=== PATIENT | male | born 1990 | race Caucasian/White ===

== ENCOUNTER 2016-07-15 13:03 | Inpatient (IN) | payer BC ==
--- NOTE | ~2016-07-15 | HP ---
History And Physical [id number] [facility] [place]. [address] NAME: EDWIN HUGHES : 89 STATUS : ADM IN PAT#: [id number] AGE: 25 ADM/REG DATE : 07/15/16 MR#: [id number] REPORT SERV DATE: 07/15/16 DICTATED BY: DATE: REPORT STATUS : Draft TRANSCRIBED BY: MODL DATE: 07/15/16 DATE OF ADMISSION: 07/15/2016 CHIEF COMPLAINT: Constipation versus bowel obstruction, acute kidney injury, and hyperkalemia. PRIMARY ONCOLOGIST: Dr. Meet London of [facility]. POINT OF ENTRY: Direct admission from [facility] office. HISTORY OF PRESENTING ILLNESS: The patient's history was obtained through careful interview with the patient coupled with review of office note provided by [facility] dated 07/15/2016 in addition to review of [facility] records. The patient is a 25-year-old male with a history of metastatic rectal cancer. He was under the outpatient care of Dr. London at [facility]. The patient presented to [facility]'s office today for a followup visit. During this visit, the patient's abdomen was noted to be greatly distended, and the patient had no recollection of when his last productive stool was despite taking multiple medications daily to include MiraLAX, Senokot, and milk of magnesia. The patient also complained of increasingly worse back pain which has required more use of home pain medications. The patient also reported decreased intake and decreased urine output. Lab work obtained during this office visit reported creatinine to be elevated at 2.6 and potassium to be elevated at 5.7. The patient was referred to [facility] for direct admission for further evaluation and treatment of constipation versus bowel obstruction, acute kidney injury, and hyperkalemia. The patient reported that he has had significant decrease in his p.o. intake over the past week secondary to nausea with occasional vomiting. The patient reports a history of chronic constipation secondary to pain medication. The patient reports that his bowel habits have changed over the past several days and he is producing only small amounts of soft stool with no recollection of last date of productive bowel movement. The patient also complains of dizziness and lightheaded associated with quickly rising from sitting to standing or while showering that has worsened over the past several days. The patient also reports acute on chronic back/spine pain that he rates at an 8/10 on the pain scale. The patient reports his pain increases with movement. REVIEW OF SYSTEMS: CONSTITUTIONAL: Denies fever, sweats, or rigors. EYES: Denies any acute changes in vision. History And Physical [address] [place]. [address] NAME: EDWIN HUGHES : 90 STATUS : ADM IN PAT#: [id number] AGE: 25 ADM/REG DATE : 07/15/16 MR#: [id number] REPORT SERV DATE: 07/15/16 DICTATED BY: DATE: REPORT STATUS : Draft TRANSCRIBED BY: MODL DATE: 07/15/16 HEENT: Positive for migraine headache lasting for approximately 24 hours on Tuesday that has since resolved. CARDIOVASCULAR: Denies chest pain, palpitations, syncope, complains of occasional shortness of breath with exertion. RESPIRATORY: Denies cough, wheezing, pleuritic pain. GASTROINTESTINAL: Complains of nausea, vomiting, chronic constipation, and chronic rectal bleeding. MUSCULOSKELETAL: Complains of chronic generalized back and spine pain. INTEGUMENT: Negative for rash and nonhealing wounds. NEUROLOGIC: Negative for history of stroke, TIA, or seizure. HEMATOLOGIC: Positive for chronic anemia. PSYCHIATRIC: Negative for depression, bipolar, and anxiety. : Negative for dysuria or hematuria. ENDOCRINE: Negative for diabetes and thyroid disease. ALLERGIES/IMMUNOLOGIC: Negative for allergies to food, medications, and latex. A review of systems was completed and is negative except for pertinent listed above. 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 The patient has not worked since April secondary to debility related to disease. He lives with the mother of his children. He consumes alcohol which varies in amount and frequency. FAMILY HISTORY: This was obtained through review of [facility] notes. The patient's mother is living. His father is living with a history of colon polyps diagnosed at age 20. Paternal grandfather is with history of colon cancer. Paternal great grandfather with history of colon cancer in his 50s. HOME MEDICATIONS: 1. Tylenol 500 mg tablet p.o. four times daily as needed. 2. Advil 200 mg tablet, take 400 mg p.o. four times daily as needed. 3. Prinivil 10 mg tablet p.o. daily. 4. Roxicodone 5 mg tablet, take 10 mg p.o. four times daily as needed for pain. ALLERGIES: NO KNOWN DRUG ALLERGIES. CODE STATUS: Per review of [facility] records, the patient's code status is DO NOT RESUSCITATE. PHYSICAL EXAMINATION: VITAL SIGNS: Oxygen saturation 92% on room air, blood pressure 108/64, temperature 97.6 degrees Fahrenheit, pulse 101, respirations 12, weight 49.98 kg, height 5 feet 10 inches. NEUROLOGIC: The patient is alert with no focal deficits. GENERAL: The patient appears cachectic and frail. The patient is awake, alert, and oriented x3. Good health historian. NECK: No lymphadenopathy. Posterior oropharynx is visible without lesions or exudate. CHEST: Right Port-A-Cath intact with no signs or symptoms of warmth, redness, or skin History And Physical [address] [address] NAME: EDWIN HUGHES : [birth year] STATUS : ADM IN PAT#: [id number] AGE: 25 ADM/REG DATE : 07/15/16 MR#: [id number] REPORT SERV DATE: 07/15/16 DICTATED BY: DATE: REPORT STATUS : Draft TRANSCRIBED BY: LADARIUS DATE: 07/15/16 breakdown. LUNGS: Shallow inspiratory effort with intermittent wheezes, decreased at bilateral bases, left greater than right. Normal work of breathing. CARDIOVASCULAR: Regular rhythm. Mild tachycardia. ABDOMEN: Bowel sounds are essentially absent. Abdomen is distended, but not firm, nontender. EXTREMITIES: No edema to bilateral lower extremities. PSYCH: Normal affect. Demonstrates good decision making ability. ASSESSMENT AND PLAN: 1. Constipation versus bowel obstruction in the setting of metastatic rectal cancer. This is likely secondary to recent increase in chronic opioid use to manage pain related to malignancy. Differential diagnosis also include possible obstruction related to tumor. KUB will be obtained prior to any interventions being initiated. Once results are available interventions will include enema, MiraLAX 17 g p.o. twice daily, Senokot, and Relistor. The patient will remain n.p.o. for now. 2. Acute kidney injury. This is likely related to dehydration due to poor p.o. intake over the last several days. Per review of [facility] note, the patient's creatinine was reported to be 2.60. The patient will receive normal saline at 100 mL/h and renal function will be rechecked in the morning. 3. Hypotension, acute, this is likely related to dehydration. The patient's blood pressure was reported to be 72/52 prior to admission. The patient received 1.5 L normal saline bolus before being admitted to the hospital. The patient will continue IV fluids, normal saline at 100 mL/h for now. Blood pressure is currently stable at 104/56. The patient's home dose of lisinopril will be held. 4. Hyperkalemia. Review of [facility] notes reported potassium to be 5.7. This is likely related to acute renal failure. Labs will be rechecked upon admission. Potassium should decrease as creatinine returns to normal with fluid resuscitation. 5. Chronic pain. This is secondary to metastatic rectal cancer. The patient's home medications included fentanyl patch and Roxicodone. Per the patient's report, he has not used fentanyl patch in over one week. Opioids will need to be used cautiously secondary to concern for fecal stasis versus bowel obstruction. 6. Metastatic rectal cancer with metastases to bone liver and lungs. The patient has suffered significant disease progression despite aggressive treatment. The patient has failed all approved agents to treat colorectal cancer. Per Dr. London, the patient will no longer receive treatment with Lonsurf secondary to performance status too poor for treatment. The patient is not a candidate for clinical trial based on his poor performance status. The patient may need transition to hospice during this admission if there is no improvement in his performance status. 7. Chronic rectal bleeding. This is secondary to rectal cancer. The patient's hemoglobin and hematocrit are currently stable at 9.3 and 28.8. The care of this patient will be transferred to the service of Dr. Meet London. [facility] History And Physical [address] [place]. [address] NAME: EDWIN HUGHES : 89 STATUS : ADM IN [facility]#: [id number] AGE: 25 ADM/REG DATE : 07/15/16 MR#: [id number] REPORT SERV DATE: 07/15/16 DICTATED BY: DATE: REPORT STATUS : Draft TRANSCRIBED BY: MODYesica DATE: 07/15/16 MANJULA Jean-Baptiste / [id number] CC: Po Jeronimo II, MD
--- NOTE | ~2016-07-15 | DS ---
Discharge Summary [facility] [address] [place]. [address] NAME: EDWIN HUGHES : 89 STATUS : DIS IN PAT#: [id number] AGE: 25 ADM/REG DATE : 07/15/16 MR#: [id number] REPORT SERV DATE: 07/19/16 DICTATED BY: DATE: REPORT STATUS : Draft TRANSCRIBED BY: MODL DATE: 07/16/16 ADMISSION DATE: 07/15/2016 DISCHARGE DATE: 07/16/2016 SUMMARY DATE AND TIME OF : 07/15/2016 at 2325 hours. HOSPITAL COURSE: The patient was a 25-year-old male, who was under the outpatient care of Dr. Meet London of [facility] for management of metastatic rectal cancer. The patient presented to [facility]'s office on 07/15/2016 for a followup visit, during which time, the patient's abdomen was noted to be distended. The patient had no recollection of when his last productive stool was despite taking multiple medications at home to treat constipation. The patient also reported significant decrease in his p.o. intake over the past week prior to admission secondary to nausea with occasional vomiting. The patient was referred to [facility] for direct admission for further evaluation and management of constipation versus bowel obstruction, acute kidney injury, and hyperkalemia. Initial evaluation and interventions included placing the patient on n.p.o. status and obtaining a KUB to rule out fecal stasis versus obstruction. KUB was obtained and reported mildly distended gas-filled colon without gas and rectum possibly due to functional obstruction. Additional interventions included orders for enema, MiraLAX, Senokot, and IV fluid hydration. Several hours into admission, the patient complained of acute onset of a significant abdominal distention with diffuse abdominal pain. Based on the patient's presentation, there was concern for bowel perforation and hospitalist and plumber's assistant were contacted. The patient was sent for stat CT of the abdomen and pelvis without contrast and stat labs were ordered to include ABGs, lactate, and i-Stat comprehensive panel. CT of abdomen and pelvis reported massive pneumoperitoneum, probably secondary to perforation of the colon, extensive progression of metastases to the lungs, osseous metastasis, and small amount of air seen in the pericardium. At the time of admission, the patient's code status was do not resuscitate. Per Oncology, the patient had already received all approved agents to treat colorectal cancer with continued disease progression. The patient was not a candidate for clinical trial based on poor performance status. During office visit at [facility] prior to this admission, the patient was asked to consider hospice secondary to significant disease progression Discharge Summary [place] [address] [place]. [address] NAME: EDWIN HUGHES : 89 STATUS : DIS IN PAT#: [id number] AGE: 25 ADM/REG DATE : 07/15/16 MR#: [id number] REPORT SERV DATE: 07/19/16 DICTATED BY: DATE: REPORT STATUS : Draft TRANSCRIBED BY: MODL DATE: 07/16/16 despite multiple failed treatments. CAUSE OF : Massive pneumoperitoneum, probably secondary to perforation of the colon in the setting of metastatic rectal cancer with metastases to bone, liver, and lung. LIT/LADARIUS MANJULA Jean-Baptiste / [id number] CC: Po Jeronimo II, MD
[~2016-07-15 13:03] MED LIST: ACET500CAP PO; AMB5 PO; ANTIDEPRESSANTS; BIST PO; ENDOCET1 TAB PO; MARI2.5 PO; MIRALAXPKT PO; PERCOCET1 TA4 PO; PR25 PO; REM15 PO; ZOFRAN8 PO
[2016-07-15] MEDS ORDERED: PRIN10 PO (14:27)
[2016-07-15] MEDS ORDERED: OXYCOD PO (14:27)
[2016-07-15] MEDS ORDERED: ACET500CAP PO (14:27)
[2016-07-15] MEDS ORDERED: ADVIL PO (14:28)
[2016-07-15 15:14] LABS: BASOPHILS 0.1 %; BASOPHILS ABSOLUTE 0.01 10/3/uL (0.0-0.16); EOSINOPHILS 0.3 %; EOSINOPHILS ABSOLUTE 0.02 10/3/uL (0.0-0.53); IMMATURE GRANULOCYTES ABSOLUTE 0.07 10/3/uL (0.0-0.11); LYMPHOCYTES 7.2 %; LYMPHOCYTES ABSOLUTE 0.52 10/3/uL (0.67-4.30); MEAN CORPUSCULAR HEMOGLOB 26.9 pg (26.0-34.0); MEAN PLATELET VOLUME 8.2 fL (9.2-13.0); MONOCYTES 6.1 %; MONOCYTES ABSOLUTE 0.44 10/3/uL (0.21-1.20); NEUTROPHILS 85.3 %; NEUTROPHILS ABSOLUTE 6.19 10/3/uL (2.02-8.40); RED CELL COUNT 2.97 10/6/uL (4.7-6.1); WHITE BLOOD CELLS 7.3 10/3/uL (4.5-10.5)
[2016-07-15 15:15] LABS: HEMATOCRIT 25.7 % (40.0-51.0); MANUAL DIFF NO %; MEAN CORPUS HGB CONC 31.1 g/dL (32.0-36.0); MEAN CORPUSCULAR VOLUME 86.5 fL (80-100); PLATELET COUNT 589 10/3/uL (150-400); RBC DISTRIBUTION WIDTH 24.7 % (12.0-16.0)
[2016-07-15 15:29] LABS: CHLORIDE, SERUM 102 MMOL/L (96-112); GLUCOSE, SERUM 66 MG/DL (60-99); PHOSPHORUS, SERUM 6.4 MG/DL (2.5-4.5); SGOT(AST) 221 U/L (5-40); SGPT(ALT) 60 U/L (5-65); SODIUM, SERUM 134 MMOL/L (135-148); TOTAL BILIRUBIN 0.4 MG/DL (0-1.2)
[2016-07-15 15:32] LABS: A/G RATIO 0.4 (0.7-1.9); ALKALINE PHOSPHATASE 620 U/L (45-117); BUN (BLOOD UREA NITROGEN) 53 MG/DL (6-23); CALCIUM, SERUM 7.5 MG/DL (8.5-10.4); CO2 (CARBON DIOXIDE) 20 MMOL/L (24-34); CREATININE 2.16 MG/DL (0.70-1.30); GFR AFRICAN AMERICAN 48 ML/MIN (>=60); GFR NON AFRICAN AMERICAN 41 ML/MIN (>=60); GLOBULIN 5.3 G/DL (2.5-4.1); POTASSIUM, SERUM 5.3 MMOL/L (3.5-5.3); TOTAL PROTEIN 7.3 G/DL (6.0-8.5)
== END 2016-07-16 02:44 | disposition expired | DRG 388 ==
LOC: 4EA 13:03
PROVIDERS: Internal Medicine; Nurse Practitioner Family
DX: K56.60 Unspecified intestinal obstruction (principal); K63.1 Perforation of intestine (nontraumatic); N17.9 Acute kidney failure, unspecified; R64 Cachexia; C78.7 Secondary malignant neoplasm of liver and intrahepatic bile duct; C78.00 Secondary malignant neoplasm of unspecified lung; I95.9 Hypotension, unspecified; C79.51 Secondary malignant neoplasm of bone; D62 Acute posthemorrhagic anemia; C20 Malignant neoplasm of rectum; K62.5 Hemorrhage of anus and rectum; Z68.1 Body mass index [BMI] 19.9 or less, adult; E86.0 Dehydration; E87.5 Hyperkalemia
CPT/HCPCS: 36600; 74000; 74176; 80053; 82330; 82803; 82947; 83605; 83735; 84100; 84132; 84295; 85014; 85025; A9270-GY; J1170